=== PATIENT | male | born 1955 | race Caucasian/White ===

== ENCOUNTER 2019-04-24 02:11 | Emergency (ER) | payer MEDICARE ==
[2019-04-24] MEDS ORDERED: ASPIRIN 81 MG TABLET, CHEWABLE PO ONE (03:30)
--- NOTE | 2019-04-24 04:53 | ER Document Report ---
ED Medical Screen (RME) - General Chief Complaint: Chest Pain Stated Complaint: CHEST PAIN Time Seen by Provider: 04/24/19 04:44 Notes: Patient is a 63-year-old male who presents to the emergency department with a chief complaint of left neck pain. He states that it is a sharp pain. He denies any chest pain, but feels like both arms are heavy. He feels like he has lost strength in both arms. He also feels like he is having contractions in his bicep muscles. He has history of strokes in the past. He has a past medical history of diabetes. He does smoke every day, 1-1/2 to 2 packs. Denies doing anything in particular. He was just watching TV. Exam: Normal strength in all extremities. I have greeted and performed a rapid initial assessment of this patient. A comprehensive ED assessment and evaluation of the patient, analysis of test results and completion of medical decision making process will be conducted by an additional ED providers. TRAVEL OUTSIDE OF THE [place] IN LAST 30 DAYS: No Physical Exam - Vital signs Vitals: Temp Pulse Resp BP Pulse Ox 98.3 F 74 20 153/75 H 93 04/24/19 02:28 04/24/19 02:28 04/24/19 02:28 04/24/19 02:28 04/24/19 02:28 Course - Vital Signs Vital signs: Temp Pulse Resp BP Pulse Ox 98.3 F 65 20 174/66 H 97 04/24/19 02:28 04/24/19 05:31 04/24/19 02:28 04/24/19 05:31 04/24/19 06:08 - Laboratory Result Diagrams: 04/24/19 04:50 04/24/19 04:50 Laboratory results interpreted by me: 04/24/19 04:50 Carbon Dioxide 32 H Glucose 213 H Calcium 10.3 H
--- NOTE | 2019-04-24 05:26 | RADIOLOGY REPORT (SQ) ---
CLINICAL HISTORY: CP COMPARISON: None. TECHNIQUE: XR CHEST 1 VIEW 04/24/2019 3:30 AM CDT FINDINGS: Cardiac silhouette is normal in size. Lungs are clear without consolidation, atelectasis, mass or edema. There is no pleural effusion. There is no pneumothorax. There are no acute osseous findings. IMPRESSION: Clear lungs.
--- NOTE | 2019-04-24 05:29 | RADIOLOGY REPORT (SQ) ---
CLINICAL HISTORY: weakness; hx stroke COMPARISON: None. TECHNIQUE: CT HEAD WITHOUT IV CONTRAST on 04/24/2019 4:53 AM CDT This exam was performed according to our departmental dose-optimization program, which includes automated exposure control, adjustment of the mA and/or kV according to patient size and/or use of iterative reconstruction technique. FINDINGS: There is no acute hemorrhage, mass effect or midline shift. Alejandre-white differentiation is preserved. There is no hydrocephalus. There is no significant volume loss for age. There are mild patchy hypodensities within the periventricular and subcortical white matter, consistent with microangiopathic ischemic changes. The calvarium is intact. Orbits and globes are unremarkable. The paranasal sinuses are clear. Mastoid air cells are clear. IMPRESSION: No acute intracranial findings.
[2019-04-24 05:35] LABS: ABSOLUTE BASOPHILS # (AUTO) 0.1 10^3/uL (0.0-0.2); ABSOLUTE EOSINOPHILS # (AUTO) 0.1 10^3/uL (0.0-0.6); ABSOLUTE LYMPHOCYTES (AUTO) 2.9 10^3/uL (0.5-4.7); ABSOLUTE MONOCYTES (AUTO) 0.6 10^3/uL (0.1-1.4); ABSOLUTE NEUT (AUTO) 3.8 10^3/uL (1.7-8.2); BASOPHILS % (AUTO) 0.9 % (0-2); EOSINOPHILS % (AUTO) 1.5 % (0-6); HEMATOCRIT 46.9 % (37.9-51.0); HEMOGLOBIN 16.2 g/dL (13.5-17.0); LYMPHOCYTES % (AUTO) 38.7 % (13-45); MEAN CORPUSCULAR HEMOGLOBIN 31.3 pg (27.0-33.4); MEAN CORPUSCULAR HGB CONC 34.6 g/dL (32.0-36.0); MEAN CORPUSCULAR VOLUME 91 fl (80-97); MONOCYTES % (AUTO) 7.8 % (3-13); PLATELET COUNT 253 10^3/uL (150-450); RED BLOOD COUNT 5.19 10^6/uL (4.35-5.55); RED CELL DISTRIBUTION WIDTH 13.2 % (11.5-14.0); SEGMENTED NEUTROPHILS % (AUTO) 51.1 % (42-78); TOTAL CELLS COUNTED % (AUTO) 100 %; WHITE BLOOD COUNT 7.5 10^3/uL (4.0-10.5)
[2019-04-24 05:47] LABS: ALANINE AMINOTRANSFERASE 21 U/L (21-72); ALBUMIN 4.3 g/dL (3.5-5.0); ALKALINE PHOSPHATASE 72 U/L (38-126); ANION GAP 8 (5-19); ASPARTATE AMINO TRANSFERASE 20 U/L (17-59); BILIRUBIN,DIRECT 0.2 mg/dL (0.0-0.4); BILIRUBIN,TOTAL 0.6 mg/dL (0.2-1.3); BLOOD UREA NITROGEN 12 mg/dL (7-20); CALCIUM 10.3 mg/dL (8.4-10.2); CARBON DIOXIDE 32 mmol/L (22-30); CHLORIDE 100 mmol/L (98-107); CREATINE KINASE 107 U/L (55-170); GLUCOSE 213 mg/dL (75-110); POTASSIUM 4.6 mmol/L (3.6-5.0); TOTAL PROTEIN 7.3 g/dL (6.3-8.2)
[2019-04-24 05:59] LABS: CREATINE KINASE MB 1.48 ng/mL (<4.55)
[2019-04-24 06:00] LABS: TROPONIN I < 0.012 ng/mL
--- NOTE | 2019-04-24 07:48 | EKG REPORT ---
SEVERITY:- NORMAL ECG - SINUS RHYTHM : Confirmed by: Elise Alberto MD 24-Apr-2019 07:47:08
--- NOTE | 2019-04-24 09:12 | RADIOLOGY REPORT (SQ) ---
EXAM DESCRIPTION: MRI CERVICAL SPINE WITHOUT COMPLETED DATE/TIME: 04/24/2019 8:48 am REASON FOR STUDY: difficulty moving BUE, L>R COMPARISON: None. TECHNIQUE: Sagittal and Axial imaging includes T1, T2, STIR and gradient echo sequences. LIMITATIONS: None. FINDINGS: ALIGNMENT: Normal. VERTEBRAE: Intact. BONE MARROW: Normal. No marrow replacement or reactive changes. DISCS: Multilevel disc desiccation and small broad-based central posterior disc bulges at C5-C6, C6-C 7, and C7-T1 which do not contact the ventral spinal cord. There are anterior osteophytes of C4 thro ugh T1. HARDWARE: None in the spine. CORD AND BASE OF BRAIN: Normal in size and signal intensity. SOFT TISSUES: No soft tissue masses. C1-C2: No significant spinal stenosis. C2-C3: No significant spinal stenosis or exit foraminal stenosis. C3-C4: No significant spinal stenosis or exit foraminal stenosis. C4-C5: No significant spinal stenosis or exit foraminal stenosis. C5-C6: No significant spinal stenosis or exit foraminal stenosis. C6-C7: No significant spinal stenosis or exit foraminal stenosis. C7-T1: No significant spinal stenosis or exit foraminal stenosis. UPPER THORACIC: Incompletely imaged. No significant spinal stenosis or exit foraminal stenosis. OTHER: No other significant finding. IMPRESSION: There are small multilevel broad-based central posterior disc bulges of the mid to lower cervical spine without evidence of significant central cervical or high-grade neural foraminal steno sis. There is no cord deformity or signal abnormality to explain motor symptoms. TECHNICAL DOCUMENTATION: JOB ID: [id number] [employer]- All Rights Reserved Reading location - IP/workstation name: [email or web address]
[2019-04-24 10:52] VITALS: BP 149/79
--- NOTE | 2019-04-24 14:21 | ER Document Report ---
Entered by NEHA WEBB SCRIBE 04/24/19 0805 Acting as scribe for:TETO HAAS DO ED General - General Chief Complaint: Chest Pain Stated Complaint: CHEST PAIN Time Seen by Provider: 04/24/19 04:44 Mode of Arrival: Ambulatory Information source: Patient Notes: 63 year old female that presents to the emergency department today with complaints of a sudden neck pain beginning at 0100 while he was watching TV. Patient states that as soon as the neck pain began he developed bilateral upper extremity weakness. Patient states he was "unable to praise the Lord" de scribing that he was unable to raise his hands above his head. Patient states since arrival here he has regained his strength but his left upper extremity still does not "feel right". Patient states he has a history of CVA x2. Patient denies any blurry vision, history of neck problems, chest pain, MVC or trauma to the neck, nausea, vomiting, or diarrhea. TRAVEL OUTSIDE OF THE [place] IN LAST 30 DAYS: No Past Medical History - General Information source: Patient - Social History Smoking Status: Current Every Day Smoker Cigarette use (# per day): Yes Chew tobacco use (# tins/day): No Frequency of alcohol use: Social Drug Abuse: Marijuana Lives with: Family Family History: Reviewed & Not Pertinent Patient has suicidal ideation: No Patient has homicidal ideation: No - Past Medical History Cardiac Medical History: Reports: Hx Hypertension Surgical Hx: Negative Review of Systems - Review of Systems Constitutional: No symptoms reported EENT: denies: Blurred vision Cardiovascular: denies: Chest pain Respiratory: No symptoms reported Gastrointestinal: denies: Diarrhea, Nausea, Vomiting Genitourinary: No symptoms reported Male Genitourinary: No symptoms reported Musculoskeletal: See HPI, Neck pain Skin: No symptoms reported Hematologic/Lymphatic: No symptoms reported Neurological/Psychological: See HPI, Weakness - bilateral upper extremity, Other - now complains of the "left upper extremity not feeling right" -: Yes All other systems reviewed and negative Physical Exam - Vital signs Vitals: Temp Pulse Resp BP Pulse Ox 98.3 F 74 20 153/75 H 93 04/24/19 02:28 04/24/19 02:28 04/24/19 02:28 04/24/19 02:28 04/24/19 02:28 - Notes Notes: PHYSICAL EXAM GENERAL: Alert, interacts well. No acute distress. HEAD: Normocephalic, atraumatic. EYES: Pupils equal, round, and reactive to light. Extraocular movements intact. ENT: Oral mucosa moist, tongue midline. NECK: Full range of motion. Supple. Trachea midline. LUNGS: Clear to auscultation bilaterally, no wheezes, rales, or rhonchi. No respiratory distress. HEART: Regular rate and rhythm. No murmurs, gallops, or rubs. ABDOMEN: Soft, non-tender. Non-distended. Bowel sounds present in all 4 quadrants. No guarding, rigidity, or rebound. EXTREMITIES: Moves all 4 extremities spontaneously. No edema, radial and dorsalis pedis pulses 2/4 bilaterally. No cyanosis. Full range of motion of bilateral upper extremities. Patient mentions that he feels as if his left upper extremity doesn't "feel the same" as his right upper extremity with range of motion testing. Patient's blood pressure cuff removed from left upper extremity and he says "oh yeah, that feels better now" but still states it "doesn't feel the same". NEUROLOGICAL: Alert and oriented x3. Normal speech. Cranial nerves II through XII grossly intact. Biceps and patellar DTRs 2+ bilaterally. Finger to nose test intact bilaterally although patient mentions "difficulty" with using the left arm. Negative drop arm test, no evidence of rotator cuff dysfunction. Sensation intact. PSYCH: Normal affect, normal mood. SKIN: Warm, dry, normal turgor. No rashes or lesions noted. Course - Re-evaluation Re-evalutation: 04/24/19 08:05 CBC unremarkable, CMP shows elevated glucose, patient has not taken his diabetes medications for at least a year, troponins are negative x2, chest x-ray and head CT are negative. EKG is nonischemic. I truly do not see any focal neurologic deficits on the patient's examination however he is quite concerned that he was unable to move his left arm or right arm earlier and still feels like his left arm is weaker than his right arm. I will order an MRI of his cervical spine to make sure there is no impingement on any nerves. Given the bilaterality of his symptoms I do not suspect stroke. 04/24/19 09:52 MRI cervical spine shows multilevel disc desiccation and small broad-based central posterior disc bulges C5-6, C6-7 and C7-T1 but they do not contact the ventral spine. No significant spinal stenosis or exit foraminal stenosis. - Vital Signs Vital signs: Temp Pulse Resp BP Pulse Ox 97.4 F 66 16 149/79 H 97 04/24/19 10:48 04/24/19 10:48 04/24/19 10:48 04/24/19 10:48 04/24/19 10:48 - Laboratory Result Diagrams: 04/24/19 04:50 04/24/19 04:50 Laboratory results interpreted by me: 04/24/19 04:50 Carbon Dioxide 32 H Glucose 213 H Calcium 10.3 H - EKG Interpretation by Me Additional EKG results interpreted by me: 04/24/19 09:54 EKG shows sinus rhythm rate 75, normal axis, normal intervals, no ST segment elevations or depressions, no T wave inversions per my interpretation. Discharge - Discharge Clinical Impression: Bilateral arm pain, Arm paresthesia, left, Arm paresthesia, right, Bilateral arm weakness Condition: Stable Disposition: HOME, SELF-CARE Additional Instructions: Today we did not find any signs of stroke, heart attack or nerve impingement. There is no sign of damage to your spinal cord. Please continue to follow-up with your primary care physician as an outpatient. I did give you muscle relaxers in case some of this pain was coming from a muscle spasm. Should it occur again please take the muscle relaxer. Should you develop weakness on specifically one side of your body or the other rather than both sides of your body please return to the emergency department as this may be another stroke. Prescriptions: Methocarbamol [Robaxin 750 mg Tablet] 750 mg PO ASDIR PRN #40 tablet PRN Reason: I personally performed the services described in the documentation, reviewed and edited the documentation which was dictated to the scribe in my presence, and it accurately records my words and actions.
== END 2019-04-24 10:53 | disposition home or self-care (01) ==
LOC: ER 02:11
DX: M79.601 Pain in right arm (principal); M79.602 Pain in left arm; R20.0 Anesthesia of skin; M62.81 Muscle weakness (generalized); R07.9 Chest pain, unspecified; M54.2 Cervicalgia; F17.210 Nicotine dependence, cigarettes, uncomplicated
CPT/HCPCS: 93005; 99284; 36415; 82553; 82550; 85025; 80053; 84484; 72141; 71045; 70450; 93010; A9270

== ENCOUNTER 2020-03-17 15:14 | Observation (INO) | payer MEDICARE ==
--- NOTE | 2020-03-17 15:20 | ER Document Report ---
ED Medical Screen (RME) - General Chief Complaint: Slurred Speech Stated Complaint: SLURRED SPEECH Time Seen by Provider: 03/17/20 15:16 Mode of Arrival: Wheelchair Information source: Patient Notes: Patient presents complaining of slurred speech that started at 10 PM last night. Patient reports weakness to the right upper extremity as well. Patient reports previous history of CVA in the past. I have greeted and performed a rapid initial assessment of this patient. A comprehensive ED assessment and evaluation of the patient, analysis of test results and completion of the medical decision making process will be conducted by additional ED providers. TRAVEL OUTSIDE OF THE [place] IN LAST 30 DAYS: No Past Medical History - Past Medical History Cardiac Medical History: Reports: Hx Hypertension Renal/ Medical History: Denies: Hx Peritoneal Dialysis Physical Exam - General General appearance: Alert Notes: Somewhat slurred speech, patient reports difficulty finding words at times
--- NOTE | 2020-03-17 15:46 | RADIOLOGY REPORT (SQ) ---
EXAM DESCRIPTION: CT HEAD WITHOUT IMAGES COMPLETED DATE/TIME: 03/17/2020 3:33 pm REASON FOR STUDY: slurred speech COMPARISON: None. TECHNIQUE: Axial images acquired through the brain without intravenous contrast. Images reviewed wi th bone, brain and subdural windows. Additional sagittal and coronal reconstructions were generated. Images stored on PACS. All CT scanners at this facility use dose modulation, iterative reconstruction, and/or weight based d osing when appropriate to reduce radiation dose to as low as reasonably achievable (ALARA). [facility]: Dose Right [facility]: CareDose [facility]: Dose Right [facility]: Teradose 4D [facility]: Urban Matrix RADIATION DOSE: CT Rad equipment meets quality standard of care and radiation dose reduction techniq ues were employed. CTDIvol: 53.2 mGy. DLP: 964 mGy-cm. mGy. LIMITATIONS: None. FINDINGS: VENTRICLES: Prominent. CEREBRUM: No masses. No hemorrhage. No midline shift. Areas of low density in the white matter mos t likely due to chronic micro-vascular ischemic change. No evidence for acute infarction. CEREBELLUM: No masses. No hemorrhage. No alteration of density. No evidence for acute infarction. EXTRAAXIAL SPACES: Mild age-related involutional change. No fluid collections. No masses. ORBITS AND GLOBE: No intra- or extraconal masses. Normal contour of globe without masses. CALVARIUM: No fracture. PARANASAL SINUSES: No fluid or mucosal thickening. SOFT TISSUES: No mass or hematoma. OTHER: No other significant finding. IMPRESSION: MILD CHRONIC CHANGES OF ATROPHY AND MICROVASCULAR ISCHEMIA. NO ACUTE PROCESS. MRI IS M ORE SENSITIVE FOR EARLY ISCHEMIC CHANGE. EVIDENCE OF ACUTE STROKE: NO. COMMENT: Pertinent positive or negative findings of the imaging study reported as a CRITICAL EXAM ced MORSE NP at15:39 on 03/17/2020. Category of Critical Exam: Stroke protocol. TECHNICAL DOCUMENTATION: JOB ID: [id number] Quality ID # [id number]: Final reports with documentation of one or more dose reduction techniques (e.g., Au tomated exposure control, adjustment of the mA and/or kV according to patient size, use of iterative reconstruction technique) 2010 [employer]- All Rights Reserved Reading location - IP/workstation name: [email or web address]
--- NOTE | 2020-03-17 15:47 | RADIOLOGY REPORT (SQ) ---
EXAM DESCRIPTION: CHEST SINGLE VIEW IMAGES COMPLETED DATE/TIME: 03/17/2020 3:31 pm REASON FOR STUDY: slurred speech COMPARISON: 04/24/2019 EXAM PARAMETERS: NUMBER OF VIEWS: One view. TECHNIQUE: Single frontal radiographic view of the chest acquired. RADIATION DOSE: NA LIMITATIONS: None. FINDINGS: LUNGS AND PLEURA: No opacities, masses or pneumothorax. No pleural effusion. MEDIASTINUM AND HILAR STRUCTURES: No masses. Contour normal. HEART AND VASCULAR STRUCTURES: Heart normal in size. Normal vasculature. BONES: No acute findings. HARDWARE: None in the chest. OTHER: No other significant finding. IMPRESSION: NO ACUTE RADIOGRAPHIC FINDING IN THE CHEST. TECHNICAL DOCUMENTATION: JOB ID: [id number] 2010 [employer]- All Rights Reserved Reading location - IP/workstation name: [email or web address]
[2020-03-17 16:08] LABS: ABSOLUTE BASOPHILS # (AUTO) 0.1 10^3/uL (0.0-0.2); ABSOLUTE EOSINOPHILS # (AUTO) 0.1 10^3/uL (0.0-0.6); ABSOLUTE LYMPHOCYTES (AUTO) 2.5 10^3/uL (0.5-4.7); ABSOLUTE MONOCYTES (AUTO) 0.4 10^3/uL (0.1-1.4); ABSOLUTE NEUT (AUTO) 6.1 10^3/uL (1.7-8.2); BASOPHILS % (AUTO) 0.8 % (0-2); EOSINOPHILS % (AUTO) 0.7 % (0-6); HEMATOCRIT 45.3 % (37.9-51.0); HEMOGLOBIN 15.7 g/dL (13.5-17.0); LYMPHOCYTES % (AUTO) 27.2 % (13-45); MEAN CORPUSCULAR HEMOGLOBIN 31.7 pg (27.0-33.4); MEAN CORPUSCULAR HGB CONC 34.6 g/dL (32.0-36.0); MEAN CORPUSCULAR VOLUME 92 fl (80-97); MONOCYTES % (AUTO) 4.8 % (3-13); PLATELET COUNT 247 10^3/uL (150-450); RED BLOOD COUNT 4.94 10^6/uL (4.35-5.55); RED CELL DISTRIBUTION WIDTH 12.7 % (11.5-14.0); SEGMENTED NEUTROPHILS % (AUTO) 66.5 % (42-78); TOTAL CELLS COUNTED % (AUTO) 100 %; WHITE BLOOD COUNT 9.2 10^3/uL (4.0-10.5)
[2020-03-17 16:12] LABS: INTERNATIONAL RATION (INR) 1.01; PROTHROMBIN TIME 13.3 SEC (11.4-15.4)
[2020-03-17 16:13] LABS: PARTIAL THROMBOPLASTIN TIME 25.8 SEC (23.5-35.8)
[2020-03-17 16:25] LABS: ALKALINE PHOSPHATASE 80 U/L (38-126); ANION GAP 8 (5-19); ASPARTATE AMINO TRANSFERASE 20 U/L (17-59); BILIRUBIN,TOTAL 0.5 mg/dL (0.2-1.3); BLOOD UREA NITROGEN 11 mg/dL (7-20); CALCIUM 9.4 mg/dL (8.4-10.2); CARBON DIOXIDE 27 mmol/L (22-30); CHLORIDE 101 mmol/L (98-107); CREATINE KINASE 60 U/L (55-170); GLUCOSE 286 mg/dL (75-110); POTASSIUM 3.9 mmol/L (3.6-5.0); TOTAL PROTEIN 7.2 g/dL (6.3-8.2)
[2020-03-17 16:48] LABS: CREATINE KINASE MB 1.25 ng/mL (<4.55)
[2020-03-17 16:49] LABS: TROPONIN I < 0.012 ng/mL
--- NOTE | 2020-03-17 16:52 | ER Document Report ---
ED General - General Chief Complaint: Slurred Speech Stated Complaint: SLURRED SPEECH Time Seen by Provider: 03/17/20 15:16 Mode of Arrival: Wheelchair Information source: Patient Notes: 64-year-old male presented to ED for complaint of slurred speech that started this morning when he woke up. He states that he had weakness to the right upper extremity as well but he no longer has the slurred speech or the weakness to the right upper extremity. He states he did have a previous stroke in 2016. He states he does have a history of high blood pressure cholesterol and diabetes. He was on metformin till about a year ago when he did ran out of the metformin and has not been to a doctor to get any more since then. He states his sugars probably have right now because he ate a burger and some biscuits this morning. TRAVEL OUTSIDE OF THE [place] IN LAST 30 DAYS: No - HPI Onset: Just prior to arrival Onset/Duration: Better Quality of pain: No pain Severity: None Pain Level: Denies Associated symptoms: Other - States he had slurred speech and weakness to the left arm earlier but he no longer has any weakness or slurred speech. He states he called his fiance in [place] about the time she got here his slurred speech had cleared up. Exacerbated by: Denies Relieved by: Denies Similar symptoms previously: Yes Recently seen / treated by doctor: No - Related Data Allergies/Adverse Reactions: No Known Allergies Allergy (Verified 03/17/20 16:12) Home Medications: metoproplol, atorvastatin Past Medical History - General Information source: Patient - Social History Smoking Status: Current Every Day Smoker Chew tobacco use (# tins/day): No Frequency of alcohol use: None Drug Abuse: Marijuana Lives with: Alone Family History: Reviewed & Not Pertinent Patient has homicidal ideation: No - Past Medical History Cardiac Medical History: Reports: Hx Hypercholesterolemia, Hx Hypertension Pulmonary Medical History: Reports: None Neurological Medical History: Reports: Hx Cerebrovascular Accident Endocrine Medical History: Reports: Hx Diabetes Mellitus Type 2 Renal/ Medical History: Reports: None Malignancy Medical History: Reports None GI Medical History: Reports: None Musculoskeletal Medical History: Reports None Skin Medical History: Reports None Psychiatric Medical History: Reports: None Traumatic Medical History: Reports: None Infectious Medical History: Reports: None Past Surgical History: Reports: Hx Inguinal Hernia - Left, Hx Orthopedic Surgery - ACL repair left leg Review of Systems - Review of Systems Neurological/Psychological: Speech impairment, Numbness -: Yes All other systems reviewed and negative Physical Exam - Vital signs Vitals: Temp 99.3 F 03/17/20 15:14 Interpretation: Normal - General General appearance: Appears well, Alert - HEENT Head: Normocephalic, Atraumatic Eyes: Normal Pupils: PERRL - Respiratory Respiratory status: No respiratory distress Chest status: Nontender Breath sounds: Normal Chest palpation: Normal - Cardiovascular Rhythm: Regular Heart sounds: Normal auscultation Murmur: No - Abdominal Inspection: Normal Distension: No distension Bowel sounds: Normal Tenderness: Nontender Organomegaly: No organomegaly - Back Back: Normal, Nontender - Extremities General upper extremity: Normal inspection, Nontender, Normal color, Normal ROM, Normal temperature General lower extremity: Normal inspection, Nontender, Normal color, Normal ROM, Normal temperature, Normal weight bearing. No: Cristhian's sign - Neurological Neuro grossly intact: Yes Cognition: Normal Orientation: AAOx4 Crowheart Coma Scale Eye Opening: Spontaneous Crowheart Coma Scale Verbal: Oriented Crowheart Coma Scale Motor: Obeys Commands Crowheart Coma Scale Total: 15 Speech: Normal Motor strength normal: LUE, RUE, LLE, RLE Sensory: Normal - Psychological Associated symptoms: Normal affect, Normal mood - Skin Skin Temperature: Warm Skin Moisture: Dry Skin Color: Normal Course - Re-evaluation Re-evalutation: 03/17/20 17:06 Discussed the patient with Dr. Garza who discussed the ABCD 2 score with me which is a 5. He stated the patient would need to be admitted for TIA because he has a moderate risk for a stroke within the next 2 to 7 days. I discussed this with Pepito Ortega hospitalist who has accepted the patient for Dr. Valle be admitted to a telemetry bed. He did request that MRI be ordered right away. That has been ordered. 03/17/20 19:15 Patient was sent to the floor before the results of the MRI came back. I have called the results to Dr. Jones. - Vital Signs Vital signs: Temp Pulse Resp BP Pulse Ox 98.1 F 79 18 186/74 H 96 03/17/20 19:54 03/17/20 20:00 03/17/20 20:00 03/17/20 20:00 03/17/20 20:00 - Laboratory Result Diagrams: 03/17/20 15:53 03/17/20 15:53 Laboratory results interpreted by me: 03/17/20 03/17/20 15:53 16:12 Sodium 135.9 L Glucose 286 H POC Glucose 280 H - Diagnostic Test Radiology reviewed: Image reviewed, Reports reviewed Discharge - Discharge Clinical Impression: TIA (transient ischemic attack) Disposition: ADMITTED INPATIENT Admitting Provider: Reynold (Hospitalist) Unit Admitted: Telemetry
[2020-03-17] MEDS ORDERED: ACETAMINOPHEN 325 MG TABLET PO PRN (17:32)
[2020-03-17] MEDS ORDERED: ONDANSETRON HCL INJ/PF 4 MG/2 ML SDV IV PRN (17:32)
[2020-03-17] MEDS ORDERED: ONDANSETRON 4 MG TAB.RAPDIS PO PRN (17:32)
[2020-03-17] MEDS ORDERED: MAG HYDROX/AL HYDROX/SIMETH SUSP 30 ML UDCUP PO PRN (17:32)
[2020-03-17] MEDS ORDERED: GLUCAGON,HUMAN RECOMB 1 MG INJ IM PRN (17:40)
[2020-03-17] MEDS ORDERED: DEXTROSE 50%-WATER 25 GM/50 ML DISP.SYRIN IV PRN ×2 (17:40)
[2020-03-17] MEDS ORDERED: DEXTROSE 40% GEL 15 GM TUBE PO PRN ×2 (17:40)
[2020-03-17] MEDS ORDERED: HYDRALAZINE HCL INJ/PF 20 MG/1 ML SDV IV PRN (18:39)
--- NOTE | 2020-03-17 18:44 | PDOC H&P ---
History of Present Illness Admission Date/PCP: 03/17/20 16:58 History of Present Illness: DAWOOD GRIMALDO is a 64 year old male who woke up this morning and for about 4 hours had "garbled speech". States he had no motor weakness of his arms or his face. Denies headache. Patient states that about 3 years ago he had a stroke that left him with some numbness in his left hand. States he has not taken any of his regular medicine in over a year because he has not seen a doctor. She is supposed to be on medication for diabetes, metformin, medication for high blood pressure, and medicine for cholesterol. Patient is currently in the emergency room sitting up in bed eating supper. Laughing , talking in no distress. Signs are stable pulse is 80 and regular blood pressure 136/70 Will be admitted to the hospital placed on aspirin, have a echocardiogram done tomorrow as well as carotid Dopplers.. She states has been told he had some mild stenosis in his carotid arteries but nothing that would require surgery 3 years ago. 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 Past Medical History Cardiac Medical History: Reports: Hyperlipidema, Hypertension Pulmonary Medical History: Reports: None Endocrine Medical History: Reports: Diabetes Mellitus Type 2 Renal/ Medical History: Reports: None Malignancy Medical History: Reports: None GI Medical History: Reports: None Musculoskeltal Medical History: Reports: None Skin Medical History: Reports: None Psychiatric Medical History: Reports: None Traumatic Medical History: Reports: None Infectious Medical History: Reports: None Past Surgical History Past Surgical History: Reports: Orthopedic Surgery - ACL repair left leg Social History Lives with: Alone Smoking Status: Current Every Day Smoker Electronic Cigarette use?: No - Advance Directive Resuscitation Status: Full Code Family History Family History: Reviewed & Not Pertinent Parental Family History Reviewed: No Children Family History Reviewed: No Sibling(s) Family History Reviewed.: No Medication/Allergy Allergies/Adverse Reactions: No Known Allergies Allergy (Verified 03/17/20 16:12) Review of Systems Constitutional: ABSENT: chills, fever(s), headache(s), weight gain, weight loss Cardiovascular: ABSENT: chest pain, dyspnea on exertion, edema, orthropnea, palpitations Respiratory: ABSENT: cough, hemoptysis Gastrointestinal: ABSENT: abdominal pain, constipation, diarrhea, hematemesis, hematochezia, nausea, vomiting Neurological: PRESENT: abnormal speech Psychiatric: ABSENT: anxiety, depression, homidical ideation, suicidal ideation Physical Exam Vital Signs: Temp Pulse Resp BP Pulse Ox 99.3 F 89 21 H 136/70 H 95 03/17/20 15:33 03/17/20 16:01 03/17/20 17:01 03/17/20 17:00 03/17/20 17:01 Intake & Output 03/16/20 03/17/20 03/18/20 06:59 06:59 06:59 Weight 78.471 kg General appearance: PRESENT: no acute distress Respiratory exam: PRESENT: clear to auscultation kamila. ABSENT: rales, rhonchi, wheezes Cardiovascular exam: PRESENT: RRR. ABSENT: diastolic murmur, rubs, systolic murmur Neurological exam: PRESENT: alert, awake, oriented to person, oriented to place, oriented to time, oriented to situation, CN II-XII grossly intact, other - No focal neurologic deficit. ABSENT: motor sensory deficit Psychiatric exam: PRESENT: appropriate affect, normal mood, other - Pleasant, smiling, talking, laughing and eating supper. ABSENT: homicidal ideation, suicidal ideation Results Laboratory Results: 03/17/20 15:53 03/17/20 15:53 03/17/20 03/17/20 15:53 15:53 WBC 9.2 RBC 4.94 Hgb 15.7 Hct 45.3 MCV 92 MCH 31.7 MCHC 34.6 RDW 12.7 Plt Count 247 Seg Neutrophils % 66.5 Sodium 135.9 L Potassium 3.9 Chloride 101 Carbon Dioxide 27 Anion Gap 8 BUN 11 Creatinine 0.96 Est GFR ( Amer) > 60 Glucose 286 H Calcium 9.4 Total Bilirubin 0.5 AST 20 Alkaline Phosphatase 80 Total Protein 7.2 Albumin 4.0 03/17/20 03/17/20 15:53 15:53 Creatine Kinase 60 CK-MB (CK-2) 1.25 Troponin I < 0.012 Impressions: Chest X-Ray 03/17/20 15:16 IMPRESSION: NO ACUTE RADIOGRAPHIC FINDING IN THE CHEST. Head CT 03/17/20 15:16 IMPRESSION: MILD CHRONIC CHANGES OF ATROPHY AND MICROVASCULAR ISCHEMIA. NO ACUTE PROCESS. MRI IS MORE SENSITIVE FOR EARLY ISCHEMIC CHANGE. EVIDENCE OF ACUTE STROKE: NO. Assessment and Plan - Diagnosis (1) Hypertension Is this a current diagnosis for this admission?: Yes (2) Hyperlipidemia Is this a current diagnosis for this admission?: Yes (3) Diabetes Is this a current diagnosis for this admission?: Yes (4) Patient noncompliance Is this a current diagnosis for this admission?: Yes (5) TIA (transient ischemic attack) Is this a current diagnosis for this admission?: Yes - Plan Summary Summary: Patient will be admitted to the hospital for observation, carotid Dopplers, echocardiogram, treatment with aspirin, close blood pressure control.. She was t old that sometimes within the first 24 hours a ischemic stroke can turn into a hemorrhagic stroke. Was told that this could be catastrophic. Patient states he wants to be a full code, admits he would like to think about this further. I spoke to the patient's fianc on the phone and explained to her what was going to happen. I explained to both she and the patient that he should be able to be discharged tomorrow afternoon. Patient seems satisfied with the visit and the admission to the hospital - Time Time Spent with patient: 35 or more minutes
--- NOTE | 2020-03-17 18:44 | RADIOLOGY REPORT (SQ) ---
EXAM DESCRIPTION: MRI HEAD WITHOUT IMAGES COMPLETED DATE/TIME: 03/17/2020 6:20 pm REASON FOR STUDY: tia COMPARISON: None. TECHNIQUE: Multiplanar imaging includes non-contrasted T1, T2, FLAIR, and diffusion with ADC map seq uences. Images stored on PACS. LIMITATIONS: None. FINDINGS: ANATOMY: No anomalies. Normal vascular flow voids. Pituitary fossa normal. CSF SPACES: Normal in size and contour. No hemorrhage. CEREBRUM: Sulci and gyri normal in size and contour. Small areas of increased white matter signal on FLAIR imaging. No evidence of hemorrhage, mass, or extraaxial fluid collection. POSTERIOR FOSSA: No signal alteration. No hemorrhage. No edema, masses or mass effect. Internal med tory canals, cerebello-pontine angles, mastoids normal. DIFFUSION IMAGING: There are a couple small areas of abnormal diffusion seen on the left on image 17 series 4. ORBITS: No masses. Globes normal. PARANASAL SINUSES: Mild mucoperiosteal changes in right maxillary sinus. OTHER: No other significant finding. IMPRESSION: There appear to be a couple small lacunar infarctions on the left in the posterior parie zach lobe, suggesting an embolic phenomenon. EVIDENCE OF ACUTE STROKE: Yes LEFT MCA TECHNICAL DOCUMENTATION: JOB ID: [id number] 2010 [employer]- All Rights Reserved Reading location - IP/workstation name: [email or web address]
--- NOTE | 2020-03-17 18:57 | RADIOLOGY REPORT (SQ) ---
EXAM DESCRIPTION: MRA NECK WITHOUT IMAGES COMPLETED DATE/TIME: 03/17/2020 6:20 pm REASON FOR STUDY: CVA COMPARISON: None. TECHNIQUE: Axial 2-D volume acquisition imaging through the extracranial carotid and vertebral arter ies with reformatting using 3-D MIPS. LIMITATIONS: None. FINDINGS: RIGHT CAROTID ARTERY: There is high-grade narrowing of the origin of the right ICA with mo re distal occlusion. LEFT CAROTID ARTERY: Cannot exclude a small amount thrombus in the distal common carotid artery. The ICA is patent. VERTEBRAL ARTERY: The extracranial portions of the vertebral basilar system are preserved without laura nosis. No aneurysmal dilatation or dissection is seen. OTHER: No other significant finding. 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 Cannot exclude a small amount of throm bus in the distal left common carotid artery. COMMENT: Quality ID #[id number]: Measurements of distal internal carotid diameter were used as the denomin ator for stenosis measurement. TECHNICAL DOCUMENTATION: JOB ID: [id number] 2010 [employer]- All Rights Reserved Reading location - IP/workstation name: [email or web address]
--- NOTE | 2020-03-17 19:05 | RADIOLOGY REPORT (SQ) ---
EXAM DESCRIPTION: MRA HEAD WITHOUT IMAGES COMPLETED DATE/TIME: 03/17/2020 6:20 pm REASON FOR STUDY: CVA COMPARISON: None. TECHNIQUE: Axial 3-D [id number] acquisition imaging performed through the brain in the area of t he [place]. Images reformatted using 3-D MIPS. LIMITATIONS: None. FINDINGS: SOURCE IMAGES: No unexpected findings on source images. No large masses. 3-D MIP: The distal right internal carotid artery is occluded. The vessels on the right side fill fr om the left. OTHER: No other significant finding. IMPRESSION: Occluded distal right internal carotid artery. [place] is otherwise intact. TECHNICAL DOCUMENTATION: JOB ID: [id number] 2010 [employer]- All Rights Reserved Reading location - IP/workstation name: [email or web address]
[2020-03-17] MEDS: ASPIRIN 325 MG TABLET PO SCH (19:46)
[2020-03-17] MEDS: INSULIN LISPRO 100 UNIT/ML 3 ML VIAL SUBCUT SCH (22:08)
[2020-03-17] MEDS: FAMOTIDINE 20 MG TABLET PO SCH (22:08)
[2020-03-17 23:19] LABS: APPEARANCE,URINE CLOUDY; BILIRUBIN,URINE NEGATIVE (NEGATIVE); COLOR,URINE LIGHT YELLOW; GLUCOSE, URINE 500 mg/dL (NEGATIVE); KETONES,URINE NEGATIVE (NEGATIVE); URINE SPECIFIC GRAVITY 1.018
[2020-03-17 23:20] LABS: PROTEIN,URINE NEGATIVE (NEGATIVE); UROBILINOGEN,URINE NEGATIVE mg/dL (<2.0)
[2020-03-17 23:21] LABS: AMORPHOUS SEDIMENT,UR 1+; BACTERIA,URINE 1+ /HPF
[2020-03-17 23:22] LABS: URINE AMPHETAMINES SCREEN NEGATIVE; URINE BARBITURATES SCREEN NEGATIVE; URINE BENZODIAZEPINES SCREEN NEGATIVE; URINE COCAINE SCREEN NEGATIVE; URINE METHADONE SCREEN NEGATIVE; URINE PHENCYCLIDINE SCREEN NEGATIVE
[2020-03-17 23:23] LABS: URINE MARIJUANA (THC) SCREEN UNCONFIRMED POSITIVE
[2020-03-18 05:21] LABS: ABSOLUTE BASOPHILS # (AUTO) 0.1 10^3/uL (0.0-0.2); ABSOLUTE EOSINOPHILS # (AUTO) 0.2 10^3/uL (0.0-0.6); ABSOLUTE LYMPHOCYTES (AUTO) 3.1 10^3/uL (0.5-4.7); ABSOLUTE MONOCYTES (AUTO) 0.7 10^3/uL (0.1-1.4); ABSOLUTE NEUT (AUTO) 4.4 10^3/uL (1.7-8.2); EOSINOPHILS % (AUTO) 2.2 % (0-6); HEMOGLOBIN 15.4 g/dL (13.5-17.0); LYMPHOCYTES % (AUTO) 36.3 % (13-45); MEAN CORPUSCULAR HEMOGLOBIN 31.9 pg (27.0-33.4); MEAN CORPUSCULAR VOLUME 91 fl (80-97); MONOCYTES % (AUTO) 8.2 % (3-13); PLATELET COUNT 230 10^3/uL (150-450); RED BLOOD COUNT 4.83 10^6/uL (4.35-5.55); RED CELL DISTRIBUTION WIDTH 13.1 % (11.5-14.0); SEGMENTED NEUTROPHILS % (AUTO) 52.3 % (42-78); TOTAL CELLS COUNTED % (AUTO) 100 %; WHITE BLOOD COUNT 8.5 10^3/uL (4.0-10.5)
[2020-03-18 05:44] LABS: ALBUMIN 3.6 g/dL (3.5-5.0); ALKALINE PHOSPHATASE 77 U/L (38-126); ANION GAP 7 (5-19); ASPARTATE AMINO TRANSFERASE 18 U/L (17-59); BILIRUBIN,TOTAL 0.4 mg/dL (0.2-1.3); BLOOD UREA NITROGEN 15 mg/dL (7-20); CALCIUM 8.7 mg/dL (8.4-10.2); CARBON DIOXIDE 26 mmol/L (22-30); CHLORIDE 103 mmol/L (98-107); GLUCOSE 188 mg/dL (75-110); POTASSIUM 4.2 mmol/L (3.6-5.0); TOTAL PROTEIN 6.5 g/dL (6.3-8.2)
--- NOTE | 2020-03-18 08:33 | EKG REPORT ---
SEVERITY:- NORMAL ECG - SINUS RHYTHM : Confirmed by: Lynn Franks 18-Mar-2020 08:32:19
--- NOTE | 2020-03-18 09:28 | RADIOLOGY REPORT (SQ) ---
EXAM DESCRIPTION: CAROTID DOPPLER IMAGES COMPLETED DATE/TIME: 03/17/2020 9:31 pm REASON FOR STUDY: tia COMPARISON: MRA of the neck without contrast from 03/17/2020. TECHNIQUE: Grayscale ultrasound, Doppler velocity and spectra, and color Doppler images acquired of the extra-cranial carotid and vertebral arteries. Images stored on PACS. LIMITATIONS: None. FINDINGS: RIGHT CAROTID The PSVs in the proximal to mid CCA range from 103 to 145 cm/s. The PSV in the distal CCA is 124 cm/ s. The ICA is occluded distal to its origins. There are eccentric atheromatous plaques in the mid C CA. LEFT CAROTID There are eccentric atheromatous plaques in the mid CCA with PSVs in the proximal to mid CCA that ran ge from 169 to 204 cm/s. The PSV in the distal CCA is 195 cm/s. The ICA is patent however eccentric atheromatous plaques are noted at the bulb, near the origin of the ICA, with PSVs that range from 11 9 to 123 cm/s (the EDVs range from 41 to 45 cm/s). Based on the PSVs, the estimated degree of stenos is is less than 50%. VERTEBRAL ARTERIES: Unable to visualize the right vertebral artery. On the correlative MRA, there is preserved flow related enhancement within the lumen of the vessel. The left vertebral artery is pat ent with antegrade directional flow. SUBCLAVIAN ARTERIES: Not evaluated. OTHER: No other finding. IMPRESSION: 1. Occlusion of the right internal carotid artery. 2. Less than 50% stenosis of the left internal carotid artery. 3. Nonvisualization of the right vertebral artery. On the correlative from or a, there is preserved flow related enhancement within the lumen of the vessel. 4. The left vertebral artery is patent with anterograde directional flow. COMMENT: Quality ID #[id number]: Velocity criteria are extrapolated from the diameter data as defined by t he Society of Radiologists in Ultrasound Consensus Conference. Radiology 2003: 229; 340-346. TECHNICAL DOCUMENTATION: JOB ID: [id number] 2010 [employer]- All Rights Reserved Reading location - IP/workstation name: [email or web address]
[2020-03-18] MEDS: INSULIN LISPRO 100 UNIT/ML 3 ML VIAL SUBCUT SCH (09:39)
[2020-03-18] MEDS: FAMOTIDINE 20 MG TABLET PO SCH (09:40)
[2020-03-18] MEDS: ASPIRIN 325 MG TABLET PO SCH (09:40)
[2020-03-18] MEDS ORDERED: ENOXAPARIN SODIUM INJ 40 MG/0.4 ML DISP.SYRIN SUBCUT SCH (10:00)
[2020-03-18] MEDS ORDERED: DOCUSATE SODIUM 100 MG CAPSULE PO SCH (10:00)
[2020-03-18 13:13] VITALS: BP 162/85
--- NOTE | 2020-03-18 16:16 | PDOC DISCHARGE SUMMARY ---
Impression - Admit/DC Date/PCP Admission Date/Primary Care Provider: 03/17/20 16:58 Discharge Date: 03/18/20 - Discharge Diagnosis (1) Hypertension Is this a current diagnosis for this admission?: Yes (2) Hyperlipidemia Is this a current diagnosis for this admission?: Yes (3) Diabetes Is this a current diagnosis for this admission?: Yes (4) Patient noncompliance Is this a current diagnosis for this admission?: Yes (5) TIA (transient ischemic attack) Is this a current diagnosis for this admission?: Yes - Assessment Summary: Patient will be admitted to the hospital for observation, carotid Dopplers, echocardiogram, treatment with aspirin, close blood pressure control.. She was told that sometimes within the first 24 hours a ischemic stroke can turn into a hemorrhagic stroke. Was told that this could be catastrophic. Patient states he wants to be a full code, admits he would like to think about this further. I spoke to the patient's fianc on the phone and explained to her what was going to happen. I explained to both she and the patient that he should be able to be discharged tomorrow afternoon. Patient seems satisfied with the visit and the admission to the hospital Patient's that is came back today on 03/18/2020. 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 Patient had been told several years ago that he had disease in both carotids but was not surgical Rotted Dopplers also showed complete occlusion of the right common carotid with less than 50% stenosis of the left internal carotid Vertebrals appear to be patent His vital signs remained stable while in the hospital although his glucose was elevated as well as his blood pressure he was discharged home on Coreg 3.125 mg every 12 hours Lipitor 40 mg nightly Metformin ER 500 mg every 12 hours and Plavix 75 mg daily. Was also told to take 1 enteric-coated baby aspirin daily. Patient was set up with follow-up with a primary care provider for the next 5 to 7 days. Patient was also told to change his diet to a more favorable stroke diet. Patient was appreciative of his visit Diagnosis #1 TIA resolved #2 history of CVA #3 hyperlipidemia #4 hypertension #5 patient noncompliance Should be stated that the patient admits he has stopped taking all of his medicine about a year ago - Additional Information Resuscitation Status: Full Code Discharge Diet: Diabetic Discharge Activity: Activity As Tolerated Prescriptions: Carvedilol [Coreg 3.125 mg Tablet] 3.125 mg PO Q12 #60 tablet Atorvastatin Calcium [Lipitor 40 mg Tablet] 40 mg PO QHS #30 tablet Metformin HCl [Metformin HCl ER] 500 mg PO Q12 30 Days #60 tab.er.24h Clopidogrel Bisulfate [Plavix 75 mg Tablet] 75 mg PO DAILY #30 tablet Home Medications: Acetaminophen [Tylenol 325 mg Tablet] 650 mg PO Q4HP PRN tablet 03/18/20 Atorvastatin Calcium [Lipitor 40 mg Tablet] 40 mg PO QHS #30 tablet 03/18/20 Carvedilol [Coreg 3.125 mg Tablet] 3.125 mg PO Q12 #60 tablet 03/18/20 Clopidogrel Bisulfate [Plavix 75 mg Tablet] 75 mg PO DAILY #30 tablet 03/18/20 Docusate Sodium [Colace 100 mg Capsule] 100 mg PO DAILY capsule 03/18/20 Famotidine [Pepcid 20 mg Tablet] 20 mg PO Q12 tablet 03/18/20 Mag Hydrox/Al Hydrox/Simeth [Maalox Plus Susp 30 Udcup] 30 ml PO Q6HP PRN udc 03/18/20 Metformin HCl [Metformin HCl ER] 500 mg PO Q12 30 Days #60 tab.er.24h 03/18/20 History of Present Illiness History of Present Illness: DAWOOD GRIMALDO is a 64 year old male who woke up this morning and for about 4 hours had "garbled speech". States he had no motor weakness of his arms or his face. Denies headache. Patient states that about 3 years ago he had a stroke that left him with some numbness in his left hand. States he has not taken any of his regular medicine in over a year because he has not seen a doctor. She is supposed to be on medication for diabetes, metformin, medication for high blood pressure, and medicine for cholesterol. Patient is currently in the emergency room sitting up in bed eating supper. Laughing , talking in no distress. Signs are stable pulse is 80 and regular blood pressure 136/70 Will be admitted to the hospital placed on aspirin, have a echocardiogram done tomorrow as well as carotid Dopplers.. She states has been told he had some mild stenosis in his carotid arteries but nothing that would require surgery 3 years ago. 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 Physical Exam Vital Signs: Temp Pulse Resp BP Pulse Ox 97.4 F 71 16 162/85 H 95 03/18/20 12:41 03/18/20 12:41 03/18/20 12:41 03/18/20 12:08 03/18/20 12:41 Intake & Output 03/17/20 03/18/20 03/19/20 06:59 06:59 06:59 Weight 77.4 kg Results Laboratory Results: WBC 8.5 10^3/uL (4.0-10.5) 03/18/20 04:24 RBC 4.83 10^6/uL (4.35-5.55) 03/18/20 04:24 Hgb 15.4 g/dL (13.5-17.0) 03/18/20 04:24 Hct 44.0 % (37.9-51.0) 03/18/20 04:24 MCV 91 fl (80-97) 03/18/20 04:24 MCH 31.9 pg (27.0-33.4) 03/18/20 04:24 MCHC 35.0 g/dL (32.0-36.0) 03/18/20 04:24 RDW 13.1 % (11.5-14.0) 03/18/20 04:24 Plt Count 230 10^3/uL (150-450) 03/18/20 04:24 Lymph % (Auto) 36.3 % (13-45) 03/18/20 04:24 [place] % (Auto) 8.2 % (3-13) 03/18/20 04:24 Eos % (Auto) 2.2 % (0-6) 03/18/20 04:24 Baso % (Auto) 1.0 % (0-2) 03/18/20 04:24 Absolute Neuts (auto) 4.4 10^3/uL (1.7-8.2) 03/18/20 04:24 Absolute Lymphs (auto) 3.1 10^3/uL (0.5-4.7) 03/18/20 04:24 Absolute Monos (auto) 0.7 10^3/uL (0.1-1.4) 03/18/20 04:24 Absolute Eos (auto) 0.2 10^3/uL (0.0-0.6) 03/18/20 04:24 Absolute Basos (auto) 0.1 10^3/uL (0.0-0.2) 03/18/20 04:24 Seg Neutrophils % 52.3 % (42-78) 03/18/20 04:24 PT 13.3 SEC (11.4-15.4) 03/17/20 15:53 INR 1.01 03/17/20 15:53 APTT 25.8 SEC (23.5-35.8) 03/17/20 15:53 Sodium 135.6 mmol/L (137-145) L 03/18/20 04:24 Potassium 4.2 mmol/L (3.6-5.0) 03/18/20 04:24 Chloride 103 mmol/L (98-107) 03/18/20 04:24 Carbon Dioxide 26 mmol/L (22-30) 03/18/20 04:24 Anion Gap 7 (5-19) 03/18/20 04:24 BUN 15 mg/dL (7-20) 03/18/20 04:24 Creatinine 0.98 mg/dL (0.52-1.25) 03/18/20 04:24 Est GFR ( Amer) > 60 (>60) 03/18/20 04:24 Est GFR (MDRD) Non-Af > 60 (>60) 03/18/20 04:24 Glucose 188 mg/dL (75-110) H 03/18/20 04:24 POC Glucose 206 mg/dL (70-110) H 03/18/20 12:08 Calcium 8.7 mg/dL (8.4-10.2) 03/18/20 04:24 Magnesium 2.1 mg/dL (1.6-2.3) 03/18/20 04:24 Total Bilirubin 0.4 mg/dL (0.2-1.3) 03/18/20 04:24 Direct Bilirubin 0.0 mg/dL (0.0-0.4) 03/18/20 04:24 Neonat Total Bilirubin Not Reportable 03/18/20 04:24 Neonat Direct Bilirubin Not Reportable 03/18/20 04:24 Neonat Indirect Bili Not Reportable 03/18/20 04:24 AST 18 U/L (17-59) 03/18/20 04:24 ALT 14 U/L (<50) 03/18/20 04:24 Alkaline Phosphatase 77 U/L (38-126) 03/18/20 04:24 Creatine Kinase 60 U/L (55-170) 03/17/20 15:53 CK-MB (CK-2) 1.25 ng/mL (<4.55) 03/17/20 15:53 Troponin I < 0.012 ng/mL 03/17/20 15:53 Total Protein 6.5 g/dL (6.3-8.2) 03/18/20 04:24 Albumin 3.6 g/dL (3.5-5.0) 03/18/20 04:24 TSH 0.67 uIU/mL (0.47-4.68) 03/17/20 15:53 Urine Color LIGHT YELLOW 03/17/20 22:30 Urine Appearance CLOUDY 03/17/20 22:30 Urine pH 8.0 (5.0-9.0) 03/17/20 22:30 Ur Specific [place] 1.018 03/17/20 22:30 Urine Protein NEGATIVE mg/dL (NEGATIVE) 03/17/20 22:30 Urine Glucose (UA) 500 mg/dL (NEGATIVE) H 03/17/20 22:30 Urine Ketones NEGATIVE mg/dL (NEGATIVE) 03/17/20 22:30 Urine Blood NEGATIVE (NEGATIVE) 03/17/20 22:30 Urine Nitrite (Reflex) NEGATIVE (NEGATIVE) 03/17/20 22:30 Urine Bilirubin NEGATIVE (NEGATIVE) 03/17/20 22:30 Urine Urobilinogen NEGATIVE mg/dL (<2.0) 03/17/20 22:30 Leukocyte Esterase Rfl NEGATIVE (NEGATIVE) 03/17/20 22:30 Urine RBC 1-5 /HPF 03/17/20 22:30 Urine WBC 0-1 /HPF 03/17/20 22:30 Amorphous Sediment 1+ 03/17/20 22:30 Urine Bacteria 1+ /HPF 03/17/20 22:30 Urine Ascorbic Acid NEGATIVE (NEGATIVE) 03/17/20 22:30 Urine Opiates Screen NEGATIVE 03/17/20 22:30 Urine Methadone Screen NEGATIVE 03/17/20 22:30 Ur Barbiturates Screen NEGATIVE 03/17/20 22:30 Ur Phencyclidine Scrn NEGATIVE 03/17/20 22:30 Ur Amphetamines Screen NEGATIVE 03/17/20 22:30 U Benzodiazepines Scrn NEGATIVE 03/17/20 22:30 Urine Cocaine Screen NEGATIVE 03/17/20 22:30 U Marijuana (THC) Screen UNCONFIRMED POSITIVE 03/17/20 22:30 03/17/20 15:53 CK-MB (CK-2) 1.25 Troponin I < 0.012 Impressions: Brain MRI with MRA 03/17/20 00:00 IMPRESSION: Occluded distal right internal carotid artery. [place] is otherwise intact. Carotid Doppler Study 03/17/20 00:00 IMPRESSION: 1. Occlusion of the right internal carotid artery. 2. Less than 50% stenosis of the left internal carotid artery. 3. Nonvisualization of the right vertebral artery. On the correlative from or a, there is preserved flow related enhancement within the lumen of the vessel. 4. The left vertebral artery is patent with anterograde directional flow. Neck MRA 03/17/20 00:00 IMPRESSION: Occlusion of the right ICA distal to the origin. Cannot exclude a small amount of thrombus in the distal left common carotid artery. Chest X-Ray 03/17/20 15:16 IMPRESSION: NO ACUTE RADIOGRAPHIC FINDING IN THE CHEST. Head CT 03/17/20 15:16 IMPRESSION: MILD CHRONIC CHANGES OF ATROPHY AND MICROVASCULAR ISCHEMIA. NO ACUTE PROCESS. MRI IS MORE SENSITIVE FOR EARLY ISCHEMIC CHANGE. EVIDENCE OF ACUTE STROKE: NO. Head MRI 03/17/20 16:52 IMPRESSION: There appear to be a couple small lacunar infarctions on the left in the posterior parietal lobe, suggesting an embolic phenomenon. EVIDENCE OF ACUTE STROKE: Yes LEFT MCA Stroke Is this a Stroke Patient?: Yes Stroke Pt being discharged on Anti-thrombolytic therapy?: Yes Stroke Pt being discharged on Anti-coagulation therapy?: Yes Stroke Pt being discharged on Statins?: Yes Acute Heart Failure - Is this a Heart Failure Patient?: No
--- NOTE | 2020-03-19 14:02 | XCELERA REPORT ---
[address] [address] Transthoracic Echocardiogram Report Name: DAWOOD GRIMALDO Age: 64 yrs Gender: Male : 1955 Patient Status: Inpatient Patient Location: [address] [place], [place] [id number] Study Date: 03/17/2020 08:09 PM Height: 67 in Weight: 173 lb BSA: 1.9 m2 Procedure: A two-dimensional transthoracic echocardiogram with color flow and Doppler was performed. Study Quality: Fair. Reason For Study: tia History: TIA. Ordering Physician: ANDRE CASAS Performed By: Monique Pacheco Interpretation Summary There is no obvious cardiac source of embolus noted on this transthoracic echocardiogram. Follow-up with a IVAN is suggested if cardiac source is still suspected. The left ventricle is normal in size. There is mild concentric left ventricular hypertrophy. LV EF is 65% Left ventricular systolic function is normal. Doppler measurements suggest impaired left ventricular relaxation, which is associated with grade I/IV or mild diastolic dysfunction The left ventricular wall motion is normal. There is no thrombus. No ASD,VSD , or PFO seen. The right ventricle is normal in size and function. The left atrial size is normal. The right atrium is normal. There is no evidence of mitral valve prolapse. There is no vegetation seen on the mitral valve. There is no mitral valve stenosis. There is a trace amount of mitral regurgitation There is no aortic valve stenosis There is no LVOT obstruction. There is aortic sclerosis without aortic stenosis. There is no tricuspid stenosis. There is a trace amount of tricuspid regurgitation Tricuspid regurgitation jet envelope not well defined to measure RV systolic pressure accurately. There is no pulmonic valvular stenosis. There is a trace amount of pulmonic regurgitation The aortic root is normal size. The inferior vena cava appeared normal and decreased > 50% with respiration (RAP 5-10 mmHg) There is no pericardial effusion. There is no obvious cardiac source of embolus noted on this transthoracic echocardiogram. Follow-up with a IVAN is suggested if cardiac source is still suspected MMode/2D Measurements & Calculations RVDd: 2.9 cm LVIDd: 5.4 cm FS: 40.0 % Ao root diam: 3.4 cm IVSd: 1.3 cm LVIDs: 3.3 cm EDV(Teich): 143.6 ml Ao root area: 9.0 cm2 LVPWd: 0.88 cm ESV(Teich): 42.9 ml LA dimension: 3.8 cm EF(Teich): 70.2 % Doppler Measurements & Calculations MV E max [place]: MV P1/2t max [place]: Ao V2 max: LV V1 max P.0 cm/sec 79.8 cm/sec 100.6 cm/sec 3.6 mmHg MV A max [place]: MV P1/2t: 80.6 msec Ao max P.1 mmHg LV V1 max: 89.5 cm/sec MVA(P1/2t): 2.7 cm2 95.3 cm/sec MV E/A: 0.80 MV dec slope: 289.9 cm/sec2 MV dec time: 0.26 sec PA V2 max: PI end-d [place]: MV P1/2t-pr_phl: 61.4 cm/sec 91.1 cm/sec 80.6 msec PA max P.5 mmHg Left Ventricle The left ventricle is normal in size. There is mild concentric left ventricular hypertrophy. LV EF is 65%. Left ventricular systolic function is normal. Doppler measurements suggest impaired left ventricular relaxation, which is associated with grade I/IV or mild diastolic dysfunction. The left ventricular wall motion is normal. There is no thrombus. No ASD,VSD , or PFO seen. Right Ventricle The right ventricle is normal in size and function. Atria The right atrium is normal. The left atrial size is normal. Mitral Valve There is no evidence of mitral valve prolapse. There is no vegetation seen on the mitral valve. There is no mitral valve stenosis. There is a trace amount of mitral regurgitation. Aortic Valve There is no aortic valvular vegetation. There is no aortic valve stenosis. There is no LVOT obstruction. There is aortic sclerosis without aortic stenosis. No aortic regurgitation is present. Tricuspid Valve There is no tricuspid stenosis. There is a trace amount of tricuspid regurgitation. Tricuspid regurgitation jet envelope not well defined to measure RV systolic pressure accurately. Pulmonic Valve There is no pulmonic valvular stenosis. There is a trace amount of pulmonic regurgitation. Great Vessels The aortic root is normal size. The inferior vena cava appeared normal and decreased > 50% with respiration (RAP 5-10 mmHg). Effusions There is no pericardial effusion. : ANDRE CASAS Lakshmi
== END 2020-03-18 13:27 | disposition home or self-care (01) ==
LOC: ER 15:14 → EH 16:58 → INTOOBSV 16:58 → 3W 18:56
PROVIDERS: ADMIT Hospitalist; ATTEND Physician Assistant
DX: G45.9 Transient cerebral ischemic attack, unspecified (principal); E78.5 Hyperlipidemia, unspecified; I10 Essential (primary) hypertension; I69.398 Other sequelae of cerebral infarction; R20.0 Anesthesia of skin; E11.9 Type 2 diabetes mellitus without complications; Z91.19 Patient's noncompliance with other medical treatment and regimen; Z60.2 Problems related to living alone; F17.200 Nicotine dependence, unspecified, uncomplicated; F12.10 Cannabis abuse, uncomplicated; I67.89 Other cerebrovascular disease
CPT/HCPCS: 93005; 99285; 36415 ×2; 82553; 82962 ×2; 82550; 83735; 84443; 85025 ×2; 85610; 85730; 80053 ×2; 81001; 84484; 80307; 93306; 93880; 70551; 70547; 70544; 71045; 70450; 93010; A9270 ×6; G0378; J1815